=== PATIENT | female | born 1960 | race Caucasian/White ===

== ENCOUNTER 2023-05-19 05:50 | Day surgery (SDC) | payer BC ==
[~2023-05-19 05:50] MED LIST: Lactated Ringers 1,000 ML IV SCH; Sodium Chloride 0.9% 10 ML Syringe FLUSH PRN; Sodium Chloride 0.9% 10 ML Syringe FLUSH SCH
[2023-05-19] MEDS ORDERED: Morphine 8 MG, EPINEPHrine 0.3 MG, Cefuroxime 750 MG, Ketorolac 30 MG, Sodium Chloride ... PRN ×5 (06:08)
[2023-05-19] MEDS ORDERED: Lidocaine 1% 5 ML VIAL ONE (06:15)
[2023-05-19] MEDS ORDERED: fentaNYL 100 MCG/2 ML SDV ONE (06:15)
[2023-05-19] MEDS ORDERED: Propofol 200 MG/20 ML SDV ONE (06:15)
[2023-05-19] MEDS ORDERED: Dexamethasone 4 MG/ML 5 ML MDV ONE (06:16)
[2023-05-19] MEDS ORDERED: Midazolam 1 MG/ML 2 ML SDV ONE (06:16)
[2023-05-19] MEDS ORDERED: Ondansetron 4 MG/2 ML SDV ONE ×2 (06:16→07:30)
[2023-05-19] MEDS ORDERED: ceFAZolin 2 GM Vial ONE (06:16)
[2023-05-19] MEDS ORDERED: Tranexamic Acid 1,000 MG/10 ML Vial ONE (06:19)
[2023-05-19] MEDS ORDERED: Vancomycin 1 GM SDV ONE (06:19)
[2023-05-19] MEDS ORDERED: Lactated Ringers 1,000 ML ONE ×2 (06:22→08:42)
[2023-05-19] MEDS ORDERED: Ondansetron 4 MG/2 ML SDV IVPUSH PRN (06:34)
[2023-05-19] MEDS ORDERED: fentaNYL 100 MCG/2 ML SDV IVPUSH PRN (06:34)
[2023-05-19] MEDS ORDERED: HYDROmorphone 0.5 MG/0.5 ML Syringe IVPUSH PRN (06:34)
[2023-05-19] MEDS ORDERED: ePHEDrine 50 MG/ML SDV ONE (07:14)
[2023-05-19] MEDS ORDERED: Ketamine 200 MG/20 ML MDV ONE (07:22)
[2023-05-19] MEDS ORDERED: Ketorolac 30 MG/ML SDV ONE (08:13)
[2023-05-19] MEDS ORDERED: Acetaminophen/HYDROcodone 325-5 MG Tab PO PRN (11:40)
== END 2023-05-19 12:45 | disposition home or self-care (01) ==
LOC: JD.SDS 05:50
PROVIDERS: ATTEND Orthopaedic Surgery
DX: M16.12 Unilateral primary osteoarthritis, left hip (principal); G89.29 Other chronic pain; E78.00 Pure hypercholesterolemia, unspecified; E03.9 Hypothyroidism, unspecified; Z79.890 Hormone replacement therapy; Z79.899 Other long term (current) drug therapy; Z88.1 Allergy status to other antibiotic agents; Z88.8 Allergy status to other drugs, medicaments and biological substances; Z79.82 Long term (current) use of aspirin
CPT/HCPCS: 0055T; 27130; 36415; 73501; 86850; 86900; 86901; 97110; 97116; 97161; A9270; C1713; C1776; J0171; J0690; J0697; J1100; J1885; J2250; J2270; J2405; J2704; J3010; J3370; J7030; J7120; 01214; J3490